=== PATIENT | female | born 1965 | race Caucasian/White ===

== ENCOUNTER → 2016-10-19 | Outpatient (CLI) | payer OTHER ==
--- NOTE | 2016-10-19 10:43 | WWHP ---
DATE OF SERVICE: 10/19/2016 CHIEF COMPLAINT: The patient is here for her routine gynecologic exam. HPI: This is a 50-year-old G1, P1 with an LMP of 02/2013. The patient is without gynecologic complaints and denies any postmenopausal bleeding. PAST MEDICAL HISTORY: Unremarkable. MEDICATIONS: Vitamin D3, 1000 units daily. Allergies to MACROBID and QUINOLONES. Past surgical, [employer], and family histories are unchanged from the 2015 H&P. SOCIAL HISTORY: She previously smoked but quit in 2016. She has 0 to 1 alcoholic drink per month and denies drug use. She has been since 1997 and this was her second marriage. She is currently unemployed and is expecting her second grandchild. REVIEW OF SYSTEMS: She has gained about 8 pounds over the last 1-1/2 years. She denies respiratory, cardiac, or GI problems. PHYSICAL EXAM: Blood pressure 108/73. Height 5 feet 1 inch. Weight 124 pounds. Temperature 97.8, pulse 84. This a well-developed, well-nourished white female who is alert and oriented x3 in no acute distress. HEENT is within normal limits. NECK: Supple without mass or thyromegaly. CHEST AND LUNGS: Clear to auscultation. HEART: Regular rate and rhythm. Breasts are without mass or discharge. Axillary exam is negative for adenopathy. BACK: Negative for CVA tenderness. ABDOMEN: Soft, nontender, without palpable masses. PELVIC EXAM: External genitalia reveals minimal atrophy without lesions. Cervix and vagina appear normal without significant atrophy. There is no evidence of prolapse. The uterus is midposition, nongravid size and nontender. There are no palpable adnexal masses or tenderness. Rectovaginal exam is negative for mass or tenderness and is negative for occult blood. EXTREMITIES: Nontender. IMPRESSION: A 50-year-old menopausal female with normal gynecologic exam. PLAN: 1. Pap smear was deferred, since she had a normal one less than 2 years ago. 2. Self breast examination was discussed. 3. The patient would like to have her mammogram done at [facility] and an order slip was given to patient for this. 4. Osteoporosis prevention was discussed. 5. I have recommended screening colonoscopy, but this was declined by the patient. 6. I have recommended that she continue to not smoke cigarettes. 7. She will return in one year.
== END | disposition home or self-care (01) ==
LOC: WWCWWP 07:58
PROVIDERS: ATTEND Obstetrics & Gynecology
DX: Z53.9 Procedure and treatment not carried out, unspecified reason (principal)